=== PATIENT | male | born 1975 | race American Indian/Alaskan Native ===

== ENCOUNTER 2020-05-11 17:26 | Emergency (ER) | payer MEDICAID ==
[2020-05-11] MEDS ORDERED: ONDANSETRON 4 MG/2 ML INJ IV ONE (18:07)
[2020-05-11] MEDS ORDERED: KETOROLAC 30 MG/1 ML INJ IV ONE (18:07)
[2020-05-11] MEDS ORDERED: SODIUM CHLORIDE 0.9% 1000 ML 1,000 ML IV ONE (18:07)
[2020-05-11 18:10] LABS: Hematocrit 47.5 % (35.5-45.6); Hemoglobin 15.8 gm/dl (11.8-15.2); Mean Corpuscular HGB Conc 33 % (32-34); Mean Corpuscular Volume 92 fl (84-94); Platelet Count 269 K/mm3 (140-440); Red Blood Count 5.17 M/mm3 (3.65-5.03); Red Cell Distribution Width 13.6 % (13.2-15.2)
--- NOTE | 2020-05-11 18:18 | XRay Report ---
CHEST 2 VIEWS INDICATION / CLINICAL INFORMATION: cough, fever, tachycardia. COMPARISON: None available. FINDINGS: SUPPORT DEVICES: None. HEART / MEDIASTINUM: No significant abnormality. LUNGS / PLEURA: No significant pulmonary or pleural abnormality. No pneumothorax. ADDITIONAL FINDINGS: No significant additional findings. IMPRESSION: No significant abnormality Signer Name: Real Blandon MD FACR Signed: 05/11/2020 6:13 PM Workstation Name: [id number]
--- NOTE | 2020-05-11 18:22 | Emergency Department Report ---
ED General Adult HPI - General Chief complaint: Nausea/Vomiting/Diarrhea Stated complaint: HEADACHE, DIARREHA, N/V Time Seen by Provider: 05/11/20 18:04 Source: patient Mode of arrival: Ambulatory Limitations: No Limitations - History of Present Illness Initial comments: 44-year-old -[place] male patient with history of COPD presents with complaints of continued cough and mild shortness of breath since his visit 1 week ago now with abdominal pain, nausea, and vomiting x3 days. Patient rates his current pain as a 10/10 in severity and states it is in his lower abdomen. He denies any hemoptysis, chest pain, hematemesis/coffee-ground emesis, diarrhea/hematochezia/melena, or history of abdominal surgeries. No urinary symptoms per patient. Patient reports he was tested for Covid on and just received his results and they were negative - Related Data Previous Rx's Medication Instructions Recorded Last Taken Type Famotidine [Pepcid] 20 mg PO BID PRN 7 Days #14 tablet 05/11/20 Unknown Rx Ibuprofen [Motrin 800 MG tab] 800 mg PO Q8HR PRN #20 tablet 05/11/20 Unknown Rx Ondansetron [Zofran Odt] 4 mg PO Q8HR PRN #15 tab.rapdis 05/11/20 Unknown Rx Allergies Allergy/AdvReac Type Severity Reaction Status Date / Time No Known Allergies Allergy Unverified 04/29/20 10:32 ED Review of Systems ROS: Stated complaint: HEADACHE, DIARREHA, N/V Other details as noted in HPI Constitutional: chills, malaise. denies: diaphoresis, fever, weakness ENT: denies: throat pain Respiratory: cough, shortness of breath Cardiovascular: denies: chest pain Endocrine: denies: excessive sweating Gastrointestinal: abdominal pain, nausea, vomiting. denies: diarrhea Genitourinary: denies: urgency, dysuria, frequency, hematuria Musculoskeletal: denies: back pain Skin: denies: rash, lesions, change in color Neurological: headache. denies: numbness, paresthesias Hematological/Lymphatic: denies: swollen glands ED Past Medical Hx - Past Medical History Previous Medical History?: Yes Additional medical history: HIV - Surgical History Past Surgical History?: No - Social History Smoking Status: Never Smoker Substance Use Type: None - Medications Home Medications: Home Medications Medication Instructions Recorded Confirmed Last Taken Type Famotidine [Pepcid] 20 mg PO BID PRN 7 Days #14 tablet 05/11/20 Unknown Rx Ibuprofen [Motrin 800 MG tab] 800 mg PO Q8HR PRN #20 tablet 05/11/20 Unknown Rx Ondansetron [Zofran Odt] 4 mg PO Q8HR PRN #15 tab.rapdis 05/11/20 Unknown Rx ED Physical Exam - General Limitations: No Limitations General appearance: alert, in no apparent distress - Head Head exam: Present: atraumatic, normocephalic - Eye Eye exam: Present: normal appearance. Absent: scleral icterus - Neck Neck exam: Present: normal inspection, full ROM - Respiratory Respiratory exam: Present: normal lung sounds bilaterally. Absent: respiratory distress, wheezes, chest wall tenderness - Cardiovascular Cardiovascular Exam: Present: normal rhythm, tachycardia - GI/Abdominal GI/Abdominal exam: Present: soft, tenderness (Suprapubic, left lower quadrant, right lower quadrant), normal bowel sounds. Absent: distended, rebound, rigid - Rectal Rectal exam: Present: deferred - Back Exam Back exam: Present: full ROM. Absent: CVA tenderness (R), CVA tenderness (L) - Neurological Exam Neurological exam: Present: alert, oriented X3, normal gait - Psychiatric Psychiatric exam: Present: normal affect, normal mood - Skin Skin exam: Present: warm, dry, intact, normal color. Absent: rash, cyanosis, diaphoretic ED Course Vital Signs 05/11/20 05/11/20 05/11/20 17:35 19:03 19:10 Temperature 100.1 F H Pulse Rate 124 H Respiratory 20 17 17 Rate Blood Pressure 118/75 Blood Pressure [Right] O2 Sat by Pulse 99 Oximetry 05/11/20 22:18 Temperature 98.7 F Pulse Rate 96 H Respiratory 16 Rate Blood Pressure Blood Pressure 115/71 [Right] O2 Sat by Pulse 96 Oximetry ED Medical Decision Making - Lab Data Result diagrams: 05/11/20 17:57 05/11/20 17:57 Lab Results 05/11/20 05/11/20 05/11/20 Range/Units 17:57 17:57 17:57 WBC 20.7 H (4.5-11.0) K/mm3 RBC 5.17 H (3.65-5.03) M/mm3 Hgb 15.8 H (11.8-15.2) gm/dl Hct 47.5 H (35.5-45.6) % MCV 92 (84-94) fl MCH 31 (28-32) pg MCHC 33 (32-34) % RDW 13.6 (13.2-15.2) % Plt Count 269 (140-440) K/mm3 Add Manual Diff Complete Total Counted 100 Seg Neuts % (Manual) 76.0 H (40.0-70.0) % Band Neutrophils % 2.0 % Lymphocytes % (Manual) 13.0 L (13.4-35.0) % Reactive Lymphs % (Man) 0 % Monocytes % (Manual) 9.0 H (0.0-7.3) % Eosinophils % (Manual) 0 (0.0-4.3) % Basophils % (Manual) 0 (0.0-1.8) % Metamyelocytes % 0 % Myelocytes % 0 % Promyelocytes % 0 % Blast Cells % 0 % Nucleated RBC % Not Reportable Seg Neutrophils # Man 15.7 H (1.8-7.7) K/mm3 Band Neutrophils # 0.4 K/mm3 Lymphocytes # (Manual) 2.7 (1.2-5.4) K/mm3 Abs React Lymphs (Man) 0.0 K/mm3 Monocytes # (Manual) 1.9 H (0.0-0.8) K/mm3 Eosinophils # (Manual) 0.0 (0.0-0.4) K/mm3 Basophils # (Manual) 0.0 (0.0-0.1) K/mm3 Metamyelocytes # 0.0 K/mm3 Myelocytes # 0.0 K/mm3 Promyelocytes # 0.0 K/mm3 Blast Cells # 0.0 K/mm3 WBC Morphology Not Reportable Hypersegmented Neuts Not Reportable Hyposegmented Neuts Not Reportable Hypogranular Neuts Not Reportable Smudge Cells Not Reportable Toxic Granulation Not Reportable Toxic Vacuolation Not Reportable Dohle Bodies Not Reportable Pelger-Huet Anomaly Not Reportable Lidna Rods Not Reportable Platelet Estimate Consistent w auto Clumped Platelets Not Reportable Plt Clumps, EDTA Not Reportable Large Platelets Not Reportable Giant Platelets Not Reportable Platelet Satelliting Not Reportable Plt Morphology Comment Not Reportable RBC Morphology Normal Dimorphic RBCs Not Reportable Polychromasia Not Reportable Hypochromasia Not Reportable Poikilocytosis Not Reportable Anisocytosis Not Reportable Microcytosis Not Reportable Macrocytosis Not Reportable Spherocytes Not Reportable Pappenheimer Bodies Not Reportable Sickle Cells Not Reportable Target Cells Not Reportable Tear Drop Cells Not Reportable Ovalocytes Not Reportable Helmet Cells Not Reportable [place] Bodies Not Reportable [place] Rings Not Reportable Valerie Cells Not Reportable Bite Cells Not Reportable Crenated Cell Not Reportable Elliptocytes Not Reportable Acanthocytes (Spur) Not Reportable Rouleaux Not Reportable Hemoglobin C Crystals Not Reportable Schistocytes Not Reportable Malaria parasites Not Reportable Db Bodies Not Reportable Hem Pathologist Commnt No Sodium 134 L (137-145) mmol/L Potassium 3.8 (3.6-5.0) mmol/L Chloride 100.0 (98-107) mmol/L Carbon Dioxide 23 (22-30) mmol/L Anion Gap 15 mmol/L BUN 7 L (9-20) mg/dL Creatinine 0.9 (0.8-1.3) mg/dL Estimated GFR > 60 ml/min BUN/Creatinine Ratio 8 % Glucose 114 H (75-100) mg/dL Lactic Acid 1.80 (0.7-2.0) mmol/L Calcium 9.4 (8.4-10.2) mg/dL Total Bilirubin 0.30 (0.1-1.2) mg/dL AST 23 (5-40) units/L ALT 11 (7-56) units/L Alkaline Phosphatase 70 (35-129) units/L Total Protein 7.8 (6.3-8.2) g/dL Albumin 4.2 (3.9-5) g/dL Albumin/Globulin Ratio 1.2 % Lipase 12 L (13-60) units/L - Radiology Data Radiology results: report reviewed CHEST 2 VIEWS INDICATION / CLINICAL INFORMATION: cough, fever, tachycardia. COMPARISON: None available. FINDINGS: SUPPORT DEVICES: None. HEART / MEDIASTINUM: No significant abnormality. LUNGS / PLEURA: No significant pulmonary or pleural abnormality. No pneumothorax. ADDITIONAL FINDINGS: No significant additional findings. IMPRESSION: No significant abnormality At CT ABDOMEN AND PELVIS WITH CONTRAST INDICATION / CLINICAL INFORMATION: lower abdominal pain, fever. TECHNIQUE: Axial CT images were obtained through the abdomen and pelvis after 100 cc Omni [address] scans at this location are performed using CT dose reduction for ALARA by means of automated exposure control. COMPARISON: None available. FINDINGS: LOWER CHEST: No significant abnormality. HEPATOBILIARY: No significant abnormality. PANCREAS: No significant abnormality. SPLEEN: No significant abnormality. ADRENALS: No significant abnormality. GENITOURINARY: No significant abnormality. GASTROINTESTINAL/MESENTERY: Appendix demonstrates no significant abnormality. No bowel obstruction or inflammation. No free air or significant free fluid. RETROPERITONEUM: No significant adenopathy. REPRODUCTIVE ORGANS: No significant abnormality. VASCULAR: No significant abnormality. SKELETAL SYSTEM: No significant abnormality. ADDITIONAL FINDINGS: None. IMPRESSION: 1. No acute abdominopelvic abnormality. Signer Name: Jorge Boudreaux MD Signed: 05/11/2020 9:21 PM Workstation Name: [id number] - Medical Decision Making 44-year-old -[place] male patient with history of COPD presents with complaints of continued cough and mild shortness of breath since his visit 1 week ago now with abdominal pain, nausea, and vomiting x3 days. Patient rates his current pain as a 10/10 in severity and states it is in his lower abdomen. He denies any hemoptysis, chest pain, hematemesis/coffee-ground emesis, diarrhea/hematochezia/melena, or history of abdominal surgeries. No urinary symptoms per patient. Patient reports he was tested for Covid on and just received his results and they were negative Tenderness noted to lower abdomen on exam. Patient and presents with low-grade fever 100.1 and tachycardia with a heart rate of 124. CBC shows a white count of 20.2. No significant abnormalities are noted on CMP or lipase. Chest x-ray is normal. CT abdomen is negative for any acute findings. Patient given Zofran, Toradol, and morphine. Heart rate is in the 80s on repeat. He is afebrile. Discussed need for urine to evaluate for possible source of infection, however patient states he does not wish to stay in the ED in wait for these results. He states he would like to go home. Discussed importance of further evaluation given patient's vitals and white count and possibility of infection and risk of . Patient verbalized understanding states he was still like to go home. He denies any dysuria/hematuria/urinary frequency or penile discharge. He is well-appearing alert and oriented x3. Patient to discharge home with treatment for viral syndrome. Discussed importance of follow-up with PCP within 2 days. Also discussed signs and symptoms that should prompt immediate return to the emergency department in detail with patient who verbalized understanding. Critical care attestation.: If time is entered above; I have spent that time in minutes in the direct care of this critically ill patient, excluding procedure time. ED Disposition Clinical Impression: Acute gastroenteritis Abdominal pain Qualifiers: Abdominal location: lower abdomen, unspecified Qualified Code(s): R10.30 - Lower abdominal pain, unspecified Disposition: DC- TO HOME OR SELFCARE Is pt being admited?: No Condition: Stable Instructions: Viral Gastroenteritis, Adult, Abdominal Pain, Adult, Ea sy-to-Read, COVID-19 Prescriptions: Ibuprofen [Motrin 800 MG tab] 800 mg PO Q8HR PRN #20 tablet PRN Reason: pain/fever Famotidine [Pepcid] 20 mg PO BID PRN 7 Days #14 tablet PRN Reason: heartburn Ondansetron [Zofran Odt] 4 mg PO Q8HR PRN #15 tab.rapdis PRN Reason: Nausea Referrals: [facility] [Provider Group] - 05/13/20
[2020-05-11 18:33] LABS: Alanine Aminotransferase 11 units/L (7-56); Albumin 4.2 g/dL (3.9-5); BUN/Creatinine Ratio 8; Blood Urea Nitrogen 7 mg/dL (9-20); Calcium 9.4 mg/dL (8.4-10.2); Hemolysis Index 7
[2020-05-11] MEDS ORDERED: MORPHINE 4 MG/1 ML INJ IV ONE (19:09)
[2020-05-11 21:23] LABS: Band Neutrophils # (Manual) 0.4 K/mm3; Basophils % (Manual) 0 % (0.0-1.8); Eosinophils % (Manual) 0 % (0.0-4.3); Total Cells Counted 100
[2020-05-11 21:24] LABS: Platelet Estimate Consistent w Auto; RBC Morphology Normal
--- NOTE | 2020-05-11 21:25 | Cat Scan Report ---
At CT ABDOMEN AND PELVIS WITH CONTRAST INDICATION / CLINICAL INFORMATION: lower abdominal pain, fever. TECHNIQUE: Axial CT images were obtained through the abdomen and pelvis after 100 cc Omni [address] scans at this location are performed using CT dose reduction for ALARA by means of automated expos ure control. COMPARISON: None available. FINDINGS: LOWER CHEST: No significant abnormality. HEPATOBILIARY: No significant abnormality. PANCREAS: No significant abnormality. SPLEEN: No significant abnormality. ADRENALS: No significant abnormality. GENITOURINARY: No significant abnormality. GASTROINTESTINAL/MESENTERY: Appendix demonstrates no significant abnormality. No bowel obstruction or inflammation. No free air or significant free fluid. RETROPERITONEUM: No significant adenopathy. REPRODUCTIVE ORGANS: No significant abnormality. VASCULAR: No significant abnormality. SKELETAL SYSTEM: No significant abnormality. ADDITIONAL FINDINGS: None. IMPRESSION: 1. No acute abdominopelvic abnormality. Signer Name: Jorge Boudreaux MD Signed: 05/11/2020 9:21 PM Workstation Name: [id number]
[2020-05-11 22:19] VITALS: BP 115/71
== END 2020-05-11 23:15 | disposition home or self-care (01) ==
LOC: ED 17:26
DX: K52.9 Noninfective gastroenteritis and colitis, unspecified (principal); R10.30 Lower abdominal pain, unspecified; J44.9 Chronic obstructive pulmonary disease, unspecified; Z79.899 Other long term (current) drug therapy; Z21 Asymptomatic human immunodeficiency virus [HIV] infection status
CPT/HCPCS: 36415; 71046; 74177; 80053; 82140; 83690; 85007; 85025; 96361; 96374; 96375; 99284; J1885; J2270; J2405; J7030; Q9967

== ENCOUNTER 2020-10-09 09:02 | Emergency (ER) | payer MEDICAID ==
--- NOTE | 2020-10-09 09:37 | Emergency Department Report ---
ED Psych HPI - General Chief Complaint: Overdose Stated Complaint: POSSIBLE OD Time Seen by Provider: 10/09/20 09:30 Source: patient, EMS Mode of arrival: Stretcher - History of Present Illness Initial Comments: This is a 45-year-old man who gives a guarded history and is probably quite delusional. He states that he took 10 100 mg trazodone at 30.4 mg Flomax as well as an unknown amount of Zyrtec. He states that he did this because he wanted to commit suicide. He admits depression. However at the time my encounter he states he no longer wants to commit suicide. He appeared to have pill fragments on his vera. He states he was "foaming". He did not describe a seizure. He did not describe any respiratory symptoms. Patient admits to a history of HIV. He states he took a previous overdose when he was depressed regarding his . He is now depressed regarding his mother was recently diagnosed with cervical cancer. He does give quite a bit of delusional content and unreliable data to this examiner. 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 He denies having ever been prescribed psychiatric medication although he does admit that the trazodone with his. He denies prior mental health admissions although this is entirely likely. He also states that he has never been under the care of a psychiatrist and then almost admittedly starts telling me how he did not like the medication that psychiatrist were prescribing him. He tells me that he wants to leave. I explained to him that he would be meeting criteria for 1013 in [place] and many other states as well. He states he is here from [place]. I discussed the process with him. It seems very apparent that he has had previous psychiatric hospitalizations. He is also claiming that he is an advanced study of psychology. I asked him if he was familiar with this process. He asked me how many days would he need to be in the hospital. I told him generally a few but that would be determined later. Ultimately he could not be deescalated from his desire to leave. Nurses were informed. The charge nurse made a call to the police. I believe he left with an INT inserted. Generally, it would be likely that law enforcement will bring this patient back for further care and stabilization. -: days(s) Associated Psychiatric Symptoms: depression, other (I suspect schizoaffective disorder) History of same: Yes Quality: constant Improves With: none Worsens With: none Context: not taking psychiatric (Most likely) Associated Symptoms: denies other symptoms Treatments Prior to Arrival: none If Self Harm: admits thoughts of, has acted on plan - Related Data Previous Rx's Medication Instructions Recorded Last Taken Type Famotidine [Pepcid] 20 mg PO BID PRN 7 Days #14 tablet 05/11/20 Unknown Rx Ibuprofen [Motrin 800 MG tab] 800 mg PO Q8HR PRN #20 tablet 05/11/20 Unknown Rx Ondansetron [Zofran Odt] 4 mg PO Q8HR PRN #15 tab.rapdis 05/11/20 Unknown Rx Allergies Allergy/AdvReac Type Severity Reaction Status Date / Time No Known Allergies Allergy Verified 10/09/20 09:18 ED Review of Systems ROS: Stated complaint: POSSIBLE OD Other details as noted in HPI Constitutional: denies: chills, fever Eyes: denies: eye pain, vision change ENT: denies: ear pain, throat pain Respiratory: denies: cough, shortness of breath Cardiovascular: denies: chest pain, palpitations Endocrine: no symptoms reported Gastrointestinal: vomiting. denies: abdominal pain, nausea Genitourinary: denies: urgency, dysuria Musculoskeletal: denies: back pain, arthralgia Skin: denies: rash, lesions Neurological: denies: headache, weakness, paresthesias Psychiatric: depression, suicidal thoughts. denies: anxiety Hematological/Lymphatic: denies: easy bleeding, easy bruising ED Past Medical Hx - Past Medical History Previous Medical History?: Yes Hx Hypertension: Yes Hx Psychiatric Treatment: Yes Additional medical history: HIV - Social History Smoking Status: Never Smoker Substance Use Type: None - Medications Home Medications: Home Medications Medication Instructions Recorded Confirmed Last Taken Type Famotidine [Pepcid] 20 mg PO BID PRN 7 Days #14 tablet 05/11/20 Unknown Rx Ibuprofen [Motrin 800 MG tab] 800 mg PO Q8HR PRN #20 tablet 05/11/20 Unknown Rx Ondansetron [Zofran Odt] 4 mg PO Q8HR PRN #15 tab.rapdis 05/11/20 Unknown Rx ED Physical Exam - General Limitations: Physical Limitation, Other (Psychiatric disorder) General appearance: alert, in no apparent distress - Head Head exam: Present: atraumatic, normocephalic - Eye Eye exam: Present: normal appearance. Absent: scleral icterus - ENT ENT exam: Present: mucous membranes moist, other (Pill fragments on vera and about mouth) - Neck Neck exam: Present: normal inspection. Absent: tenderness, meningismus - Respiratory Respiratory exam: Present: normal lung sounds bilaterally. Absent: respiratory distress - Cardiovascular Cardiovascular Exam: Present: regular rate, normal rhythm. Absent: systolic murmur, diastolic murmur, rubs, gallop - GI/Abdominal GI/Abdominal exam: Present: soft, normal bowel sounds. Absent: distended, tenderness, guarding, rebound - Rectal Rectal exam: Present: deferred - Extremities Exam Extremities exam: Present: normal inspection - Back Exam Back exam: Present: normal inspection - Neurological Exam Neurological exam: Present: alert, oriented X3, CN II-XII intact, normal gait. Absent: motor sensory deficit - Psychiatric Psychiatric exam: Present: anxious, manic (Somewhat hypomanic) - Skin Skin exam: Present: warm, dry, intact, normal color. Absent: rash ED Course Vital Signs 10/09/20 09:15 Pulse Rate 82 Respiratory 19 Rate Blood Pressure 120/85 O2 Sat by Pulse 98 Oximetry Critical care attestation.: If time is entered above; I have spent that time in minutes in the direct care of this critically ill patient, excluding procedure time. ED Disposition Clinical Impression: Overdose Qualifiers: Encounter type: initial encounter Injury intent: intentional self-harm Qualified Code(s): T50.902A - Poisoning by unspecified drugs, medicaments and biological substances, intentional self-harm, initial encounter Suicide gesture Qualifiers: Encounter type: initial encounter Qualified Code(s): X83.8XXA - Intentional self-harm by other specified means, initial encounter Schizoaffective disorder Qualifiers: Schizoaffective disorder type: unspecified Qualified Code(s): F25.9 - Schizoaffective disorder, unspecified Disposition: MED SCREENING EXAM-LEFT Is pt being admited?: No Does the pt Need Aspirin: No Condition: Stable Referrals: PRIMARY CARE, [Primary Care Provider] - 3-5 Days Time of Disposition: 09:40
[2020-10-09 09:52] VITALS: BP 120/85
== END 2020-10-09 11:17 | disposition left against medical advice (07) ==
LOC: ED 09:02
DX: T65.892A Toxic effect of other specified substances, intentional self-harm, initial encounter (principal); F32.9 Major depressive disorder, single episode, unspecified; F25.9 Schizoaffective disorder, unspecified; I10 Essential (primary) hypertension; Z53.21 Procedure and treatment not carried out due to patient leaving prior to being seen by health care provider; Z21 Asymptomatic human immunodeficiency virus [HIV] infection status; Z79.1 Long term (current) use of non-steroidal anti-inflammatories (NSAID); Z79.899 Other long term (current) drug therapy; Y92.89 Other specified places as the place of occurrence of the external cause

== ENCOUNTER 2022-02-28 19:12 | Emergency (ER) | payer MEDICAID | END 2022-02-28 20:41 | disposition left against medical advice (07) | LOC: ED 19:12 | DX: S29.9XXA Unspecified injury of thorax, initial encounter (principal); Z53.21 Procedure and treatment not carried out due to patient leaving prior to being seen by health care provider; X58.XXXA Exposure to other specified factors, initial encounter; Y93.89 Activity, other specified; Y92.89 Other specified places as the place of occurrence of the external cause; Y99.8 Other external cause status ==